=== PATIENT | female | born 1970 | race Caucasian/White ===

== ENCOUNTER → 2019-07-20 | Outpatient (CLI) | payer OTHER ==
[2019-07-21 11:04] LABS: Candida species (DNA Probe) Positive (NEGATIVE); G. vaginalis (DNA Probe) Negative (NEGATIVE); T. vaginalis (DNA Probe) Negative (NEGATIVE)
== END | disposition home or self-care (01) ==
LOC: LAB EV 16:55 → LAB SHORT 16:55
PROVIDERS: Physician Assistant
DX: R10.2 Pelvic and perineal pain (principal)
CPT/HCPCS: 87086; 87480; 87510; 87660

== ENCOUNTER 2020-01-21 07:13 | Day surgery (SDC) | payer OTHER, BC ==
[~2020-01-21] VITALS: Ht 175.3 cm; Wt 82.1 kg
[~2020-01-21 07:13] MED LIST: ALBU90OI INH; CYCL10 PO; Cimetidine800 MG PO; DAILY FIBER0.52 GM PO; MIRENA1 EACH VAG; Maxalt Mlt10 MG SL; NITR.4SL SL; OMEP20ER PO; Robaxin-750750 MG PO
== END 2020-01-21 09:30 | disposition home or self-care (01) ==
LOC: ORSCSDS 07:13
PROVIDERS: Internal Medicine Gastroenterology
PROC: 0DBL8ZX Excision of Transverse Colon, Via Natural or Artificial Opening Endoscopic, Diagnostic (ICD-10-PCS; principal; 2020-01-21 08:30)
DX: Z12.11 Encounter for screening for malignant neoplasm of colon (principal); D12.3 Benign neoplasm of transverse colon; K64.8 Other hemorrhoids; K57.30 Diverticulosis of large intestine without perforation or abscess without bleeding; Z79.899 Other long term (current) drug therapy
CPT/HCPCS: 88305; J0461; J2405; J2704; J7120

== ENCOUNTER → 2021-08-05 | Outpatient (CLI) | payer OTHER, BC | LOC: LAB SHORT 18:31 | DX: D22.5 Melanocytic nevi of trunk (principal); D22.71 Melanocytic nevi of right lower limb, including hip; D22.62 Melanocytic nevi of left upper limb, including shoulder; L82.1 Other seborrheic keratosis; D48.5 Neoplasm of uncertain behavior of skin; L71.8 Other rosacea; L08.9 Local infection of the skin and subcutaneous tissue, unspecified; L21.8 Other seborrheic dermatitis; Z86.14 Personal history of Methicillin resistant Staphylococcus aureus infection; Z09 Encounter for follow-up examination after completed treatment for conditions other than malignant neoplasm | CPT/HCPCS: 87070; 87205 ==

== ENCOUNTER → 2021-12-28 | Outpatient (CLI) | payer OTHER, BC | END | disposition home or self-care (01) | LOC: LAB SHORT 12:10 | DX: R30.9 Painful micturition, unspecified (principal) | CPT/HCPCS: 87077; 87086; 87186 ==